=== PATIENT | female | born 1975 | race Hispanic/Latino ===

== ENCOUNTER 2017-03-09 10:42 | Emergency (ER) | payer BC ==
[2017-03-09 10:48] VITALS: BP 106/70; PULSE 61; RESP 16; TEMP 98; O2SAT 97
[2017-03-09 10:49] VITALS: BMI 24.0
--- NOTE | 2017-03-09 11:21 | ED PDOC ---
Upper Extremity Pain/Injury Time Seen by Provider: 03/09/17 10:45 Chief Complaint (Nursing): Upper Extremity Problem/Injury Chief Complaint (Provider): Shoulder pain History Per: Patient Additional Complaint(s): Pt is a 41 yo female, no PMH, presents to ED for evaluation of left shoulder and elbow pain sustained after a slip and fall down her stairs (3 steps) 2 days ago. Pt fell and landed directly onto her elbow. Pt reports that over the last 2 days her shoulder began to hurt. Pt has been taking Motrin without relief. Pt is breast feeding Past Medical History Reviewed: Nursing Documentation, Vital Signs Vital Signs: Last Vital Signs Temp 98 F 03/09/17 10:48 Pulse 61 03/09/17 10:48 Resp 16 03/09/17 10:48 BP 106/70 03/09/17 10:48 Pulse Ox 97 03/09/17 10:48 - Medical History PMH: Asthma ("sports") - Surgical History Surgical History: No Surg Hx - Family History Family History: States: Unknown Family Hx - Living Arrangements Living Arrangements: With Family - Social History Current smoker - smoking cessation education provided: No Alcohol: None Drugs: Denies - Home Medications Home Medications: Ambulatory Orders Medication Instructions Recorded DiphenhydrAMINE [Benadryl] 50 mg PO Q6H #20 cap 08/12/15 Famotidine [Pepcid] 20 mg PO BID #20 tab 08/12/15 Prednisone 50 mg PO DAILY #4 tab 08/12/15 Ibuprofen [Motrin] 600 mg PO Q6 #20 tab 03/09/17 - Allergies Allergies/Adverse Reactions: Allergies Allergy/AdvReac Type Severity Reaction Status Date / Time No Known Allergies Allergy Verified 03/09/17 11:16 Review of Systems ROS Statement: Except As Marked, All Systems Reviewed And Found Negative Musculoskeletal: Positive for: Shoulder Pain Physical Exam - Reviewed Nursing Documentation Reviewed: Yes Vital Signs Reviewed: Yes - Physical Exam Appears: Positive for: Well, Non-toxic, No Acute Distress Head Exam: Positive for: ATRAUMATIC, NORMAL INSPECTION, NORMOCEPHALIC Skin: Positive for: Normal Color, Warm, DRY Eye Exam: Positive for: EOMI, Normal appearance, PERRL ENT: Positive for: Normal ENT Inspection Neck: Positive for: Normal, Painless ROM Cardiovascular/Chest: Positive for: Regular Rate, Rhythm Respiratory: Positive for: CNT, Normal Breath Sounds Gastrointestinal/Abdominal: Positive for: Normal Exam, Bowel Sounds, Soft Back: Positive for: Normal Inspection Extremity: Positive for: Normal ROM, Tenderness (over elbow and posterior shoulder). Negative for: Deformity, Swelling Neurologic/Psych: Positive for: Alert, Oriented - ECG O2 Sat by Pulse Oximetry: 97 Medical Decision Making Medical Decision Making: Pt medicated with Motrin PO XR of Elbow, shoulder and Scapula all negativew pt made aware and demonstrated full understanding RICE therapy advised. Pt declined sling at this time Disposition - Clinical Impression Clinical Impression: Elbow contusion, Shoulder pain - Patient ED Disposition Is Patient to be Admitted: No - Disposition Disposition: Routine/Home Disposition Time: 13:15 Condition: STABLE Prescriptions: Ibuprofen [Motrin] 600 mg PO Q6 #20 tab Instructions: Contusion in Adults (ED) - POA Present On Arrival: None
--- NOTE | 2017-03-09 14:02 | RAD ---
PROCEDURE: Report left shoulder HISTORY: fall down stairs COMPARISON: None TECHNIQUE: Standard protocol for this study/examination. FINDINGS: No significant osseous, articular or soft tissue abnormalities. Preserved glenohumeral relationship. Negative study for clavicular, scapular, humeral fracture. No abnormalities visualized thorax including limited assessment of ribs and pulmonary parenchyma Degenerative changes- none IMPRESSION: No significant or acute findings to account for/ related to the clinical presentation.
--- NOTE | 2017-03-09 14:03 | RAD ---
PROCEDURE: Radiographs of the left elbow. HISTORY: fall down stairs COMPARISON: No prior. FINDINGS: BONES: Normal. No fracture. JOINTS: Normal. No osteoarthritis. SOFT TISSUES: Normal. JOINT EFFUSION: None. OTHER FINDINGS: None IMPRESSION: Unremarkable radiographs of the left elbow.
--- NOTE | 2017-03-09 14:03 | RAD ---
PROCEDURE: Radiographs of the Chest and Left Ribs. HISTORY: fall down stairs COMPARISON: None available. TECHNIQUE: Frontal radiograph of the chest and multiple oblique radiographs of the left ribs were obtained. FINDINGS: LEFT RIBS: No fracture or focal lesion visualized. LUNGS: Clear. PLEURA: No pneumothorax or pleural fluid. CARDIOVASCULAR: Normal sized heart. No pulmonary vascular congestion. OTHER FINDINGS: None. IMPRESSION: Unremarkable radiographs of the chest and left ribs. No left rib fracture.
--- NOTE | 2017-03-09 14:09 | RAD ---
PROCEDURE: Left scapula HISTORY: fall down stairs COMPARISON: Not available TECHNIQUE: AP and lateral scapular radiographs FINDINGS: No evidence of fracture. No lytic or blastic osseous lesion. Glenohumeral and acromioclavicular articulations appear intact. IMPRESSION: No scapular fracture identified.
== END 2017-03-09 14:20 | disposition home or self-care (01) ==
LOC: H.ER 10:42
DX: M25.512 Pain in left shoulder (principal); M25.522 Pain in left elbow; W10.9XXA Fall (on) (from) unspecified stairs and steps, initial encounter; Y92.89 Other specified places as the place of occurrence of the external cause